=== PATIENT | male | born 1985 | race Caucasian/White ===

== ENCOUNTER 2016-08-31 08:59 | Emergency (ER) | payer MEDICAID ==
[2016-08-31 09:37] VITALS: PULSE 87; RESP 16; TEMP 97.7; O2SAT 100
[2016-08-31 09:42] VITALS: BP 139/82
[2016-08-31] MEDS ORDERED: DEXAMETHASONE 4 MG TAB PO ONE ×2 (10:19→10:27)
[2016-08-31] MEDS ORDERED: IBUPROFEN 800 MG TAB PO ONE (10:19)
[2016-08-31] MEDS ORDERED: IBUPROFEN 200 MG TAB PO ONE (10:29)
[2016-08-31] MEDS ORDERED: DEXAMETHASONE 4 MG TAB ONE (10:30)
--- NOTE | 2016-08-31 10:36 | UCPHY ---
H & P Time Seen by Provider: 08/31/16 09:47 Patient Type: Established HPI/ROS: HPI Sore throat. 31-year-old male by private vehicle. This patient complains of a sore throat which is worse on the right side of his throat for the last 2 days. He also reports pain radiates up into the right ear any has had swollen lymph nodes in his neck. No significant past medical history. No voice changes. He has had no stridor. He denies any difficulty breathing. He is able swallow liquids but it is more painful with swallowing. ROS: Constitutional: No fever, no chills. No weakness. Eyes: No discharge. No changes in vision. ENT: As above. No nasal congestion or rhinorrhea. Respiratory: No cough. No shortness of breath. Cardiac: No chest pain, no palpitations. Gastrointestinal: No abdominal pain, no vomiting, no diarrhea. Genitourinary: No hematuria. No dysuria or increased frequency with urination. Musculoskeletal: No back pain. No neck pain. No myalgias or arthralgias. Skin: No rashes. Neurological: No headache. No focal weakness or altered sensation. Past medical history: None. Dr. Kaur is his primary care physician. Social history: Here by himself. Physical Exam: General Appearance: Alert, no distress. This patient is responding to questions appropriately and in full sentences. This patient appears well- hydrated and well-nourished. Eyes: Pupils equal and round no pallor or injection. No lid edema, erythema or injection. ENT, Mouth: Mucous membranes are moist. The right pharyngeal arch is erythematous and swollen relative to the left. No exudates. No stridor. No voice changes. Right external auditory canal and tympanic membrane are normal on speculum examination. Right-sided submandibular lymphadenopathy. No stridor on auscultation of his neck. No voice changes. Respiratory: There are no retractions, lungs are clear to auscultation with good air movement bilaterally. Neurological: Motor sensory function is grossly intact. Cranial nerves are normal. Gait is normal. Skin: Warm and dry, no rashes. Musculoskeletal: Neck is supple and nontender. Extremities are symmetrical. All joints range without pain or impingement. Psychiatric: No agitation. No depression. Database: Rapid strep-negative. EKG: Imaging: Procedures: Needle aspiration of right sided pharyngeal swelling; bupivacaine, 0.5% without epinephrine injected into the site of maximum fluctuance. Good local anesthesia obtained. Using tongue blade, suctioning and needle guard an 18 gauge needle was inserted approximately 1 cm into this site. No purulent fluid was aspirated. Procedure tolerated well and there were no complications. Performed by myself. Emergency department course: After my evaluation and above procedure patient given 800 mg of ibuprofen and 12 mg of oral Decadron. Plan will be to have him follow up with [facility]NT tomorrow for re-evaluation. I will give him a 1 time repeat dose of Decadron to be taken tomorrow as well. He will also be prescribed Vicodin for pain. I have reviewed high-dose ibuprofen with him. He does not have any voice changes. No stridor. He does feel comfortable going home and I feel he is safe for discharge. Return to Urgent Care/emergency department precautions discussed with him. All of his questions were answered. He was discharged in good condition. Differential Diagnosis: The differential diagnosis on this patient includes but is not limited to streptococcal pharyngitis, viral pharyngitis, peritonsillar abscess. Retropharyngeal abscess, mononucleosis, tracheitis, epiglottitis unlikely. This represents a partial list of diagnoses considered. These considerations are based on history, physical exam, past history, reassessment and diagnostic testing. Smoking Status: Never smoked Constitutional: Initial Vital Signs Temperature (C) 36.5 C 08/31/16 09:30 Heart Rate 87 08/31/16 09:30 Respiratory Rate 16 08/31/16 09:30 Blood Pressure 139/82 H 08/31/16 09:30 O2 Sat (%) 100 08/31/16 09:30 O2 Delivery Mode Room Air Allergies/Adverse Reactions: No Known Allergies Allergy (Verified 08/31/16 09:38) Home Medications: Medication Instructions Recorded Dexamethasone [Decadron 4 MG (RX)] 8 mg PO ONCE #2 tab 08/31/16 Hydrocodone/APAP 5/325 [[place] 1 - 2 tab PO Q4-6PRN PRN #10 tab 08/31/16 5/325 (*)] Medical Decision Making - Data Points Laboratory Results: 08/31/16 08/31/16 Unknown 09:45 Group A Strep Screen NEGATIVE (NEGATIVE) Group A Strep DNA Pending Medications Given: Discontinued Medications Dexamethasone (Decadron) 4 mg PO EDNOW ONE Stop: 08/31/16 10:20 Last Admin: 08/31/16 10:37 Dose: Not Given Dexamethasone (Decadron) 12 mg PO EDNOW ONE Stop: 08/31/16 10:28 Last Admin: 08/31/16 10:36 Dose: 12 mg Ibuprofen (Motrin) 800 mg PO EDNOW ONE Stop: 08/31/16 10:20 Last Admin: 08/31/16 10:36 Dose: 800 mg Departure - Departure Disposition: Home, Routine, Self-Care Clinical Impression: Pharyngitis Condition: Good Instructions: Pharyngitis (ED) Additional Instructions: Read and follow provided instructions. Ibuprofen dosin mg every 6 hours with meals for the next 3 days only. [place]/Percocet dosin-2 every 4-6 hours for pain. Do not drive on this medication. Follow-up with [facility]NT, Dr. Lonnie Wilson or 1 of his partners or assistance tomorrow for re-evaluation. Call their office this afternoon for appointment time. Explain this is for an emergency department follow-up. Take medication as prescribed. Return to the emergency department for worsening throat pain, difficulty swallowing, stridor, voice changes or other serious concerns. Referrals: Lonnie Wilson MD [Medical Doctor] - As per Instructions Prescriptions: Dexamethasone [Decadron 4 MG (RX)] 8 mg PO ONCE #2 tab Hydrocodone/APAP 5/325 [[place] 5/325 (*)] 1 - 2 tab PO Q4-6PRN PRN #10 tab PRN Reason: Pain, Moderate - PQRS PQRS Measurement: Not applicable.
== END 2016-08-31 10:46 | disposition home or self-care (01) ==
LOC: CED 08:59
DX: J02.9 Acute pharyngitis, unspecified (principal)
CPT/HCPCS: 87880-PO; 99214-PO; G0463-PO

== ENCOUNTER 2016-09-02 20:02 | Emergency (ER) | payer MEDICAID ==
[2016-09-02 20:20] VITALS: BP 126/80; PULSE 93; RESP 18; TEMP 98.2; O2SAT 97
[2016-09-02] MEDS ORDERED: DEXAMETHASONE 4 MG TAB PO ONE (20:54)
[2016-09-02] MEDS ORDERED: HYDROCOD/APAP 5/325 PREPACK#6 BTL TAKEHOME ONE (20:57)
[2016-09-02] MEDS ORDERED: DOXYCYCLINE HYCLATE 100 MG CAP/TAB PO ONE (20:57)
--- NOTE | 2016-09-02 21:00 | UCPHY ---
H & P Time Seen by Provider: 09/02/16 20:40 Patient Type: Established HPI/ROS: This patient has ongoing throat pain 2 days after being evaluated here for tonsillitis by Dr. Morales. He had a negative rapid strep in DNA strep. A needle aspiration of the tonsils performed to rule out abscess with the dry tap- no abscess noted. The patient complains of ongoing moderate to severe pain when he ran out of his [place]. He was given a dose of Decadron during his visit here 2 days ago. He has difficulty swallowing due to increased pain/ odynophagia reports the pain radiates from his right throat to his ears and drop. ROS: No high fevers or chills. He reports no other constitutional symptoms. No drooling or dysphonia. No other HEENT complaints. Pulmonary: No cough cardiovascular: No complaints GI: No nausea or vomiting. Integumentary: No skin rash. 7 point ROS is otherwise negative. Smoking Status: Never smoked Physical Exam: Physical Exam Vital signs are normal. General: No acute distress HEENT: Nose: Clear oropharynx: Patient has right tonsillar swelling more than left with mild ecchymosis to the right tonsillar pillar. There is mild uvular edema and erythema. No exudates are noted. No drooling stridor or dysphonia. There is no submental swelling or sublingual swelling. Ears external canals and TMs clear bilaterally. Eyes: Pupils equal and react to light. Extraocular motions are intact. Neck: Supple with no meningismus. He has no significant lymphadenopathy Lungs: Clear to auscultation bilaterally. No respiratory distress. Cardiac: Regular rate and rhythm with no murmur gallop or rub Skin: No rash or pallor. Neuro: Alert and oriented x3 with no sensorimotor deficits. Initial differential diagnosis: Uvulitis, Quincke's disease, tonsillitis caused by non strep pathogen Constitutional: Initial Vital Signs Temperature (C) 36.8 C 09/02/16 20:17 Heart Rate 93 09/02/16 20:17 Respiratory Rate 18 09/02/16 20:17 Blood Pressure 126/80 H 09/02/16 20:17 O2 Sat (%) 97 09/02/16 20:17 O2 Delivery Mode Room Air Allergies/Adverse Reactions: No Known Allergies Allergy (Verified 08/31/16 09:38) Home Medications: Medication Instructions Recorded Claritin 09/02/16 Doxycycline Hyclate 100 mg PO 14 #0 capsule 09/02/16 Hydrocodone/APAP 5/325 [[place] 1 - 2 tab PO Q4PRN PRN #15 tab 09/02/16 5/325 (*)] Medical Decision Making ED Course/Re-evaluation: I obtained a general throat culture and sent that which is pending. I gave the patient another 10 mg Decadron dose for mild uvular edema. Will cover him with doxycycline antibiotic. I counseled him regarding this. He has very minimal uvular symptoms. There is not any current evidence of risk to his airway. He will follow up with ENT on Wednesday for any ongoing symptoms. He understands the need to Go go to the emergency department if he has any significant worsening of symptoms despite the treatment plan - Data Points Medications Given: Discontinued Medications Acetaminophen/Hydrocodone Bitart ([place] 5/325mg Prepack#6) 1 btl TAKEHOME EDNOW ONE Stop: 09/02/16 20:58 Last Admin: 09/02/16 21:31 Dose: 1 btl Dexamethasone (Decadron) 10 mg PO EDNOW ONE Stop: 09/02/16 20:55 Last Admin: 09/02/16 21:30 Dose: 10 mg Doxycycline Hyclate (Doxycycline Hyclate) 100 mg PO EDNOW ONE PRN Reason: Protocol Stop: 09/02/16 20:58 Last Admin: 09/02/16 21:30 Dose: 100 mg Departure - Departure Disposition: Home, Routine, Self-Care Clinical Impression: Uvulitis, Tonsillitis Instructions: Uvulitis (ED) Additional Instructions: Diagnosis: 1. Uvulitis 2. Tonsillitis Plan: Doxycycline antibiotic Stop Aspirin. Take ibuprofen [id number] mg per 6 hours as needed. Tylenol or Vicodin in addition if needed. No driving, alcohol or come Vicodin Follow up with the ENT physician on Wednesday for recheck. Go to the emergency department for any significant worsening despite the treatment plan Referrals: Saige Kaur MD [Primary Care Provider] - As per Instructions Prescriptions: Doxycycline Hyclate 100 mg PO 14 #0 capsule Hydrocodone/APAP 5/325 [[place] 5/325 (*)] 1 - 2 tab PO Q4PRN PRN #15 tab PRN Reason: Pain - PQRS PQRS Measurement: NA
== END 2016-09-02 21:32 | disposition home or self-care (01) ==
LOC: CED 20:02
DX: K12.2 Cellulitis and abscess of mouth (principal); J03.90 Acute tonsillitis, unspecified
CPT/HCPCS: 99214-PO; G0463-PO

== ENCOUNTER 2018-09-20 11:57 | Day surgery (SDC) | payer MEDICAID ==
--- NOTE | 2018-09-20 12:21 | PDANEPAE ---
ANE History of Present Illness egd/colon ANE Past Medical History - Cardiovascular History Hx Hypertension: No Hx Arrhythmias: No Hx Chest Pain: No Hx Coronary Artery / Peripheral Vascular Disease: No Hx CHF / Valvular Disease: No Hx Palpitations: No - Pulmonary History Hx COPD: No Hx Asthma/Reactive Airway Disease: No Hx Recent Upper Respiratory Infection: No Hx Oxygen in Use at Home: No Hx Sleep Apnea: No - Neurologic History Hx Cerebrovascular Accident: No Hx Seizures: No Hx Dementia: No - Endocrine History Hx Diabetes: No Hypothyroid: No Hyperthyroid: No Obesity: no - Renal History Hx Renal Disorders: No - Liver History Hx Hepatic Disorders: No - GI History GERD: mild Hx Gastrointestinal Disorders: Yes ANE Review of Systems Review of Systems: - Exercise capacity Exercise capacity: >=4 METS ANE Patient History - Allergies Allergies/Adverse Reactions: No Known Allergies Allergy (Verified 08/31/16 09:38) - Home Medications Home Medications: Claritin 09/02/16 [Last Taken Unknown] - NPO status NPO Status: no food or drink >8 hours - Anes Hx Anes Hx: no prior problems - Smoking Hx Smoking Status: Never smoked ANE Physical Exam - Airway Mallampati Score: Class 2 Mouth exam: normal dental/mouth exam - Pulmonary Pulmonary: no respiratory distress - Cardiovascular Cardiovascular: regular rate and rhythym - ASA Status ASA Status: I ANE Anesthesia Plan Anesthesia Plan: GA with mask, MAC
[2018-09-20] MEDS ORDERED: fentaNYL 100 MCG/2 ML INJ ONE (12:23)
[2018-09-20] MEDS ORDERED: MIDAZOLAM 2 MG/2 ML VIAL ONE (12:23)
[2018-09-20] MEDS ORDERED: LIDOCAINE 2% 5 ML SDV ONE (12:23)
[2018-09-20] MEDS ORDERED: PROPOFOL/EMULSION 500 MG/50 ML BOTTLE IV ONE (12:23)
[2018-09-20] MEDS ORDERED: LR 1,000 ML IV ONE (12:25)
--- NOTE | 2018-09-20 13:34 | PDGENHP ---
History & Physical Chief Complaint: Heartburn, Diarrhea, Hematochezia History of Present Illness: 33 yo male with chronic GERD and episodic bloody diarrhea. Brother with crohn's disease. Pertinent Past, Social, Family History: PMH: GERD. PSH: [place] teeth. SH: THC use. FH: IBD Relevant Physical Exam: NAD. CTA B/L. RRR without m/r/g. GI soft. NABS. NT/ND Cardiorespiratory Assessment: EGD. Colonoscopy. MAC with IV sedation. ASA II
--- NOTE | 2018-09-20 13:48 | GIREPORT ---
[facility] - Endoscopy Department Patient Name: Mikal Swann Procedure Date: 09/20/2018 12:38 PM Patient Type: Outpatient Attending MD/ ER Physician: Ernesto Santoro MD Procedure: Upper GI endoscopy Indications: Periumbilical abdominal pain, Heartburn, Diarrhea Providers: Ernesto Santoro MD Medicines: Propofol per Anesthesia Complications: No immediate complications. Description of Procedure: After obtaining informed consent, the endoscope was passed under direct vision. Throughout the procedure, the patient's blood pressure, pulse, and oxygen saturations were monitored continuously. The Endoscope was intro duced through the mouth, and advanced to the second part of duodenum. The [facility] er GI endoscopy was accomplished without difficulty. The patient tolerated th e procedure well. Findings: The esophagus was normal. Patchy mild inflammation characterized by erosions and erythema was fou nd in the gastric body and in the gastric antrum. Biopsies were taken with a cold forceps for histology. The duodenal bulb, first portion of the duodenum and second portion of the duodenum were normal. Biopsies for histology were taken with a cold for ceps for evaluation of celiac disease. Estimated Blood Loss: Estimated blood loss: none. Post Op Diagnosis: - Normal esophagus. - Acute gastritis. Biopsied. - Normal duodenal bulb, first portion of the duodenum and second portio n of the duodenum. Biopsied. Recommendation: - Await pathology results. - Resume previous diet. - Continue present medications. - Perform a colonoscopy today. - Return to physician assistant production manager as previously scheduled. - Patient has a contact number available for emergencies. The signs and symptoms of potential delayed complications were discussed with the pat ient. Return to normal activities tomorrow. Written discharge instructions we re provided to the patient. - Thank you for allowing me to be involved in the care of your patient. Attending Participation: I personally performed the entire procedure without the assistance of a fellow, resident or surg ical assistant production manager. Ernesto Santoro MD Ernesto Santoro MD 09/20/2018 1:47:52 PM This report has been signed electronicallyDavid MD Yvan Number of Addenda: 0 Note Initiated On: 09/20/2018 12:38 PM [email or web address]
[2018-09-20] MEDS ORDERED: ALBUTEROL 3 ML DEYVIAL IH PRN (13:50)
[2018-09-20] MEDS ORDERED: ACETAMINOPHEN 500 MG TAB PO PRN (13:50)
[2018-09-20] MEDS ORDERED: fentaNYL 100 MCG/2 ML INJ IVP PRN (13:50)
[2018-09-20] MEDS ORDERED: PROMETHAZINE HCL 25 MG/ML INJ IVP PRN (13:50)
[2018-09-20] MEDS ORDERED: NALOXONE HCL 0.4 MG/ML INJ IVP PRN (13:50)
[2018-09-20] MEDS ORDERED: ONDANSETRON 4 MG/2 ML VIAL IVP PRN (13:50)
[2018-09-20] MEDS ORDERED: LR 500 ML IV PRN (13:50)
[2018-09-20] MEDS ORDERED: ePHEDrine SULFATE 25 MG/5 ML SYR ONE ×2 (13:51)
[2018-09-20] MEDS ORDERED: PROPOFOL 200 MG/20 ML VIAL ONE (14:05)
--- NOTE | 2018-09-20 14:10 | POSTANESTH ---
Post Anesthetic Evaluation Cardiovascular Status: Normal, Stable Respiratory Status: Normal, Stable Level of Consciousness/Mental Status: Can Participate in Eval Pain Control: Adequate, Prn Tx Ordered Nausea/Vomiting Control: Adequate, Prn Tx Ordered Complications Possibly Related to Anesthesia: None Noted
--- NOTE | 2018-09-20 14:15 | GIREPORT ---
[facility] Surgical Services - Endoscopy Department Patient Name: Mikal Swann Procedure Date: 09/20/2018 1:33 PM Patient Type: Outpatient Attending MD/ ER Physician: Ernesto Santoro MD Procedure: Colonoscopy Indications: Abdominal pain in the left lower quadrant, Chronic diarrhea, Hematochez ia Providers: Ernesto Santoro MD Medicines: Propofol per Anesthesia Complications: No immediate complications. Description of Procedure: After obtaining informed consent, the scope was passed under direct vis ion. Throughout the procedure, the patient's blood pressure, pulse, and oxyg en saturations were monitored continuously. The Colonoscope was introduced through the anus and advanced to 5 cm into the ileum. The colonoscopy w as performed without difficulty. The patient tolerated the procedure well. The quality of the bowel preparation was excellent. The terminal ileum, ileocecal valve, appendiceal orifice, and rectum were photographed. Findings: The digital rectal exam findings include non-thrombosed external hemorrhoids. Pertinent negatives include normal sphincter tone, no palp able rectal lesions and normal prostate (size, shape, and consistency). Patchy inflammation, mild in severity and characterized by erosions was found in the distal ileum. Biopsies were taken with a cold forceps for histology. The area from rectum to cecum appeared normal. Biopsies for histology w ere taken with a cold forceps from the right colon and left colon for evalu ation of microscopic colitis. Estimated Blood Loss: Estimated blood loss: none. Post Op Diagnosis: - Non-thrombosed external hemorrhoids found on digital rectal exam. - Ileitis. Biopsied. - The rectum to cecum is normal. Biopsied. - The cause for hematochezia is likely external hemorrhoids. - The ileitis is non-specific and may be related to episodic NSAID use or bowel cleanse related. There is a possibility of crohn's ileitis but th e findings are very mild and not overtly IBD related. Recommendation: - Await pathology results. - Repeat colonoscopy at age 50 for screening purposes. - Resume previous diet. - No aspirin, ibuprofen, naproxen, or other non-steroidal anti-inflamma tory drugs. - Continue present medications. - Patient has a contact number available for emergencies. The signs and symptoms of potential delayed complications were discussed with the pat ient. Return to normal activities tomorrow. Written discharge instructions we re provided to the patient. - Return to physician laundry assistant as previously scheduled. - Thank you for allowing me to be involved in the care of your patient. Attending Participation: I personally performed the entire procedure without the assistance of a fellow, resident or surg ical laundry assistant. Ernesto Santoro MD Ernesto Santoro MD 09/20/2018 2:14:49 PM This report has been signed electronicallyDavid MD Yvan Number of Addenda: 0 Note Initiated On: 09/20/2018 1:33 PM Total Procedure Duration Time 0 hours 15 minutes 52 seconds [email or web address]
[2018-09-20 15:04] VITALS: BP 117/68
== END 2018-09-20 15:11 | disposition home or self-care (01) ==
LOC: FSGY 11:57
PROVIDERS: ATTEND Internal Medicine Gastroenterology
PROC: 0DBE8ZX Excision of Large Intestine, Via Natural or Artificial Opening Endoscopic, Diagnostic (ICD-10-PCS; principal; 2018-09-20 13:30)
PROC: 0DBB8ZX Excision of Ileum, Via Natural or Artificial Opening Endoscopic, Diagnostic (ICD-10-PCS; principal; 2018-09-20 13:30)
PROC: 0DB98ZX Excision of Duodenum, Via Natural or Artificial Opening Endoscopic, Diagnostic (ICD-10-PCS; principal; 2018-09-20 13:30)
PROC: 0DB78ZX Excision of Stomach, Pylorus, Via Natural or Artificial Opening Endoscopic, Diagnostic (ICD-10-PCS; principal; 2018-09-20 13:30)
DX: K21.9 Gastro-esophageal reflux disease without esophagitis (principal); K92.1 Melena; R19.7 Diarrhea, unspecified; Z83.71 Family history of colonic polyps
CPT/HCPCS: J2250; J2704; J3010